=== PATIENT | female | born 2000 | race Caucasian/White ===

== ENCOUNTER 2022-10-20 12:28 | Observation (INO) | payer SELFPAY ==
[2022-10-20] MEDS ORDERED: Acetaminophen 325 MG Tab PO ONE (13:35)
[2022-10-20] MEDS ORDERED: Naproxen 500 MG Tab PO ONE (13:35)
[2022-10-20 15:23] LABS: C. TRACHOMATIS BY PCR DETECTED; N. GONORRHOEAE BY PCR NOT DETECTED
[2022-10-20] MEDS ORDERED: Methotrexate PF 50 MG/2 ML SDV IM STA ×2 (16:45→17:28)
== END 2022-10-21 11:00 | disposition home or self-care (01) ==
LOC: MW.ED 12:28 → MW.MS 17:03
PROVIDERS: ADMIT Obstetrics & Gynecology; ATTEND Obstetrics & Gynecology
DX: N93.9 Abnormal uterine and vaginal bleeding, unspecified (principal); D50.0 Iron deficiency anemia secondary to blood loss (chronic); F41.9 Anxiety disorder, unspecified; J45.909 Unspecified asthma, uncomplicated; Z88.0 Allergy status to penicillin; Z79.899 Other long term (current) drug therapy; Z20.822 Contact with and (suspected) exposure to COVID-19; Z86.16 Personal history of COVID-19; Z98.890 Other specified postprocedural states
CPT/HCPCS: 36415; 76817; 84702; 85025; 86850; 86870; 86900; 86901; 87491; 87591; 87635; 96372; 99285; A9270; G0378; J9260; U0002